=== PATIENT | female | born 1975 | race American Indian/Alaskan Native ===

== ENCOUNTER 2017-05-17 01:55 | Emergency (ER) | payer BC ==
[2017-05-17] MEDS ORDERED: TETRACAINE 0.5% OU ONE (03:21)
[2017-05-17 03:44] LABS: Basophils % (Auto) 1.3 % (0.0-1.8); Eosinophils % (Auto) 0.5 % (0.0-4.3); Hematocrit 45.2 % (30.3-42.9); Hemoglobin 15.4 gm/dl (10.1-14.3); Mean Corpuscular HGB Conc 34 % (30-34); Mean Corpuscular Hemoglobin 31 pg (28-32); Mean Corpuscular Volume 91 fl (79-97); Platelet Count 312 K/mm3 (140-440); Red Blood Count 4.97 M/mm3 (3.65-5.03); Red Cell Distribution Width 12.8 % (13.2-15.2); White Blood Count 9.6 K/mm3 (4.5-11.0)
[2017-05-17 04:06] LABS: Alanine Aminotransferase 38 units/L (7-56); Albumin 4.7 g/dL (3.9-5); Albumin/Globulin Ratio 1.6 %; Alkaline Phosphatase 109 units/L (35-129); Anion Gap 23 mmol/L; BUN/Creatinine Ratio 12; Blood Urea Nitrogen 6 mg/dL (7-17); Calcium 9.8 mg/dL (8.4-10.2); Carbon Dioxide 21 mmol/L (22-30); Chloride 93.2 mmol/L (98-107); Glucose 266 mg/dL (65-100); Potassium 5.3 mmol/L (3.6-5.0); Sodium 132 mmol/L (137-145); Total Protein 7.6 g/dL (6.3-8.2)
[2017-05-17] MEDS ORDERED: FUL-GLO OP ONE (04:06)
[2017-05-17] MEDS ORDERED: MORPHINE IV ONE ×2 (04:59→06:06)
--- NOTE | 2017-05-17 05:40 | Cat Scan Report ---
FINAL REPORT EXAM: CT ORBIT/EAR/FOSSA W CON HISTORY: eval for left orbital cellulits TECHNIQUE: CT images are acquired through the orbits following intravenous administration contrast. Transaxial , coronal and sagittal reformations are provided. PRIORS: None. FINDINGS: Normal spherical shape of the globes. The retro bulbar fat is unremarkable. No facial fractures. No periosteal reaction. Incomplete evaluation of the partially imaged brain is grossly unremarkable. Mastoid air cells are clear. Trace fluid level in the left maxillary sinus. Minimal mucosal thickening in the ethmoid air cells and right maxillary sinus. IMPRESSION: No postseptal orbital cellulitis. Retro bulbar intraorbital contents appear unremarkable. Trace air-fluid level in the left maxillary sinus. Correlation for symptoms of acute sinusitis is requested.
--- NOTE | 2017-05-17 06:07 | Emergency Department Report ---
ED General Adult HPI - General Chief complaint: Eye Problems Stated complaint: LEFT EYE INJURY Time Seen by Provider: 05/17/17 03:19 Source: patient Mode of arrival: Ambulatory Limitations: No Limitations - History of Present Illness Initial comments: Patient is a 41-year-old female past medical history of diabetes who presents with left eye pain. Patient states that she was wearing a trial of contacts earlier on yesterday. She left the contacts in however her left eye became increasingly more swelling and discharge came from the eye. Patient states that her pain is 8 out of 10 is an achy type of pain radiates to the back of her head. She denies having any nausea or vomiting she states that she has decreased vision from her left eye. Severity scale (0 -10): 10 - Related Data Previous Rx's Medication Instructions Recorded Last Taken Type Moxifloxacin 0.5% [Vigamox] 1 drops OP Q8H #1 bottle 05/17/17 Unknown Rx Naproxen 250 mg PO BID #30 tablet 05/17/17 Unknown Rx Allergies Allergy/AdvReac Type Severity Reaction Status Date / Time latex Allergy Rash Verified 05/17/17 03:20 Penicillins Allergy Rash Verified 05/17/17 03:20 ED Review of Systems ROS: Stated complaint: LEFT EYE INJURY Other details as noted in HPI Constitutional: denies: chills, fever Eyes: eye pain, eye discharge, vision change ENT: denies: ear pain, throat pain Respiratory: denies: cough, shortness of breath, wheezing Cardiovascular: denies: chest pain, palpitations Endocrine: no symptoms reported Gastrointestinal: denies: abdominal pain, nausea, diarrhea Genitourinary: denies: urgency, dysuria, discharge Musculoskeletal: denies: back pain, joint swelling, arthralgia Skin: denies: rash, lesions Neurological: denies: headache, weakness, paresthesias Psychiatric: denies: anxiety, depression Hematological/Lymphatic: denies: easy bleeding, easy bruising ED Past Medical Hx - Past Medical History Previous Medical History?: Yes Hx Diabetes: Yes (pre-diabetic) - Surgical History Past Surgical History?: Yes Additional Surgical History: x2 - Social History Smoking Status: Never Smoker - Medications Home Medications: Home Medications Medication Instructions Recorded Confirmed Last Taken Type Moxifloxacin 0.5% [Vigamox] 1 drops OP Q8H #1 bottle 05/17/17 Unknown Rx Naproxen 250 mg PO BID #30 tablet 05/17/17 Unknown Rx ED Physical Exam - General Limitations: No Limitations General appearance: alert, in no apparent distress - Head Head exam: Present: atraumatic, normocephalic - Eye Eye exam: Present: conjunctival injection, other (left coreneal abrasion. Proptotic eye pain with OS intact to finger counting ) - ENT ENT exam: Present: mucous membranes moist - Neck Neck exam: Present: normal inspection - Respiratory Respiratory exam: Present: normal lung sounds bilaterally. Absent: respiratory distress - Cardiovascular Cardiovascular Exam: Present: regular rate, normal rhythm. Absent: systolic murmur, diastolic murmur, rubs, gallop - GI/Abdominal GI/Abdominal exam: Present: soft, normal bowel sounds - Extremities Exam Extremities exam: Present: normal inspection - Back Exam Back exam: Present: normal inspection - Neurological Exam Neurological exam: Present: alert, oriented X3 - Psychiatric Psychiatric exam: Present: normal affect, normal mood - Skin Skin exam: Present: warm, dry, intact, normal color. Absent: rash ED Course Vital Signs 05/17/17 05/17/17 05/17/17 03:09 05:06 05:30 Temperature 98.4 F Pulse Rate 16 L Respiratory 16 18 18 Rate Blood Pressure 139/86 Blood Pressure [Left] O2 Sat by Pulse 98 100 Oximetry 05/17/17 07:07 Temperature Pulse Rate 97 H Respiratory 16 Rate Blood Pressure Blood Pressure 137/91 [Left] O2 Sat by Pulse 100 Oximetry ED Medical Decision Making - Lab Data Result diagrams: 05/17/17 03:33 05/17/17 03:33 Lab Results 05/17/17 05/17/17 05/17/17 Range/Units 03:33 03:33 03:55 WBC 9.6 (4.5-11.0) K/mm3 RBC 4.97 (3.65-5.03) M/mm3 Hgb 15.4 H (10.1-14.3) gm/dl Hct 45.2 H (30.3-42.9) % MCV 91 (79-97) fl MCH 31 (28-32) pg MCHC 34 (30-34) % RDW 12.8 L (13.2-15.2) % Plt Count 312 (140-440) K/mm3 Lymph % (Auto) 21.9 (13.4-35.0) % [place] % (Auto) 7.7 H (0.0-7.3) % Eos % (Auto) 0.5 (0.0-4.3) % Baso % (Auto) 1.3 (0.0-1.8) % Lymph # 2.1 (1.2-5.4) K/mm3 [place] # 0.7 (0.0-0.8) K/mm3 Eos # 0.0 (0.0-0.4) K/mm3 Baso # 0.1 (0.0-0.1) K/mm3 Seg Neutrophils % 68.6 (40.0-70.0) % Seg Neutrophils # 6.6 (1.8-7.7) K/mm3 Sodium 132 L (137-145) mmol/L Potassium 5.3 H (3.6-5.0) mmol/L Chloride 93.2 L (98-107) mmol/L Carbon Dioxide 21 L (22-30) mmol/L Anion Gap 23 mmol/L BUN 6 L (7-17) mg/dL Creatinine 0.5 L (0.7-1.2) mg/dL Estimated GFR > 60 ml/min BUN/Creatinine Ratio 12 % Glucose 266 H (65-100) mg/dL Calcium 9.8 (8.4-10.2) mg/dL Total Bilirubin 0.40 (0.1-1.2) mg/dL AST 44 H (5-40) units/L ALT 38 (7-56) units/L Alkaline Phosphatase 109 (35-129) units/L Total Protein 7.6 (6.3-8.2) g/dL Albumin 4.7 (3.9-5) g/dL Albumin/Globulin Ratio 1.6 % HCG, Quant < 2 (0-4) mIU/mL - Radiology Data Radiology results: report reviewed, image reviewed [place] for a very - Medical Decision Making Chief medical diagnosis: Ocular foreign body Differential medical diagnosis: Corneal ulcer, corneal abrasion, orbital cellulitis, preseptal cellulitis CBC, CMP, IV pain medication, ED scan of orbit and eye irrigation, fluorsciene strip, tetracaine Irrigated patient's eye and stained patient with tetracaine she has a corneal abrasion. However she still states that the contact lens is still in her eye. I was not able to evacuate contact lens. Discussed with metal numerical tool programmer at [facility]. He says patient can go to his clinic today at 10 in the morning. At [facility]. I will write patient prescription for Vigamox and I will send her out with naproxen for pain. Discussed plan with patient. She agrees with plan additonal verbal discharge instructions were given. Critical care attestation.: If time is entered above; I have spent that time in minutes in the direct care of this critically ill patient, excluding procedure time. ED Disposition Clinical Impression: Corneal abrasion, left Qualifiers: Encounter type: initial encounter Qualified Code(s): S05.02XA - Injury of conjunctiva and corneal abrasion without foreign body, left eye, initial encounter Foreign body in eyeball, left Qualifiers: Encounter type: initial encounter Qualified Code(s): S05.52XA - Penetrating wound with foreign body of left eyeball, initial encounter Disposition: DC- TO HOME OR SELFCARE Is pt being admited?: No Does the pt Need Aspirin: No Condition: Stable Instructions: Moxifloxacin (Into the eye) Additional Instructions: PLEASE FOLLOW-UP at with Dr. Cristobal Elliott [facility] AT [address] [place] [address] YOUR APPOINTMENT IS AT 10:00 AM Phone number [phone] Prescriptions: Moxifloxacin 0.5% [Vigamox] 1 drops OP Q8H #1 bottle Naproxen 250 mg PO BID #30 tablet Referrals: PRIMARY CARE, [Primary Care Provider] - 3-5 Days
[2017-05-17] MEDS ORDERED: TOBREX OU ONE (06:24)
[2017-05-17] MEDS ORDERED: PERCOCET 5/325 PO ONE (06:37)
[2017-05-17 07:08] VITALS: BP 137/91
== END 2017-05-17 07:08 | disposition home or self-care (01) ==
LOC: ED 01:55
DX: S05.52XA Penetrating wound with foreign body of left eyeball, initial encounter (principal); S05.02XA Injury of conjunctiva and corneal abrasion without foreign body, left eye, initial encounter; E11.9 Type 2 diabetes mellitus without complications; Z91.040 Latex allergy status; Z88.0 Allergy status to penicillin; X58.XXXA Exposure to other specified factors, initial encounter; Y93.89 Activity, other specified; Y92.89 Other specified places as the place of occurrence of the external cause; Y99.8 Other external cause status
CPT/HCPCS: 36415; 70481; 80053; 84702; 85025; 96374; 99284; J2270; Q9967